=== PATIENT | female | born 1960 | race African-American/Black ===

== ENCOUNTER 2019-08-14 19:03 | Emergency (ER) | payer MEDICAID, OTHER ==
[~2019-08-14] VITALS: Ht 152.4 cm; Wt 54.4 kg
[~2019-08-14 19:03] MED LIST: AMBIEN5 MG ORAL; CIPRO500 MG PO; MULTI-VITAMIN1 EACH PO; NORCO 10/3251 EA ORAL; PERCOCET 5-3251 EACH ORAL; SOMA350 MG PO; [UNRECOGNIZED DRUG - CODE]; vit C; vit E
--- NOTE | 2019-08-14 19:14 | NUR ---
ED Nurse Note: Pt ambulated to ED from home c/o burning in her chest since 1529 today. Pt also reports numbness on L arm. Denies sob or trauma.
[2019-08-14 19:16] VITALS: BP 130/80
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
[2019-08-14] MEDS ORDERED: Ketorolac 30mg Inj IV ONE (19:30)
[2019-08-14] MEDS ORDERED: Aspirin Baby 81mg ORAL ONE (19:30)
[2019-08-14 20:15] LABS: HEMATOCRIT 35.1 % (37.0-47.0); HEMOGLOBIN 11.2 G/DL (12.0-16.0); MEAN CORPUSCULAR VOLUME 93 FL (80-99); PLATELET COUNT 347 K/UL (150-450); RED BLOOD COUNT 3.77 M/UL (4.20-5.40); RED CELL DISTRIBUTION WIDTH 11.5 % (11.6-14.8); WHITE BLOOD COUNT 5.2 K/UL (4.8-10.8)
[2019-08-14 20:26] LABS: ANION GAP 2 mmol/L (5-15); BLOOD UREA NITROGEN 9 mg/dL (7-18); CALCIUM 8.1 MG/DL (8.5-10.1); CARBON DIOXIDE 32 MMOL/L (21-32); CHLORIDE 105 MMOL/L (98-107); CREATININE 0.7 MG/DL (0.55-1.30); POTASSIUM 3.3 MMOL/L (3.5-5.1); SODIUM 139 MMOL/L (136-145)
[2019-08-14 20:39] LABS: ALANINE AMINOTRANSFERASE 11 U/L (12-78); ALBUMIN 3.4 G/DL (3.4-5.0); ALKALINE PHOSPHATASE 76 U/L (46-116); ASPARTATE AMINO TRANSFERASE 13 U/L (15-37); BILIRUBIN,TOTAL 0.1 MG/DL (0.2-1.0); CKMB 0.5 NG/ML (0.0-3.6); CREATINE KINASE 60 U/L (26-308)
--- NOTE | 2019-08-14 21:15 | NUR ---
ED Nurse Note: Pt resting with eyes closed, no signs of distress, non-labored breathing. Will continue to monitor.
[2019-08-14] MEDS ORDERED: IBUPROFEN600 MG ORAL (23:38)
[2019-08-15] VITALS: BP 130/80
--- NOTE | 2019-08-15 | NUR ---
ER DISCHARGE NOTE: Patient is cleared to be discharged per ERMD, pt is aox4, on room air, with stable vital signs. pt was given dc and prescription instructions, pt was able to verbalize understanding, pt id band and iv site removed without complications. pt is able to ambulate with steady gait. pt took all belongings.
--- NOTE | 2019-08-15 12:37 | Diagnostic Imaging Report ---
Indication: Chest Comparison: 09/03/2014 A single view chest radiograph was obtained. Findings: No definite infiltrate or pulmonary vascular congestion identified. The heart is enlarged. The aorta is mildly enlarged consistent with atherosclerotic vascular disease. The bones are osteopenic. Impression: No acute disease
--- NOTE | 2019-08-17 15:31 | Cardiology Report ---
APPROVED REPORT EKG Measurement Heart [id number] Normal sinus rhythm Incomplete right bundle branch block Borderline ECG
== END 2019-08-15 | disposition home or self-care (01) ==
LOC: EMR 19:42
DX: R07.9 Chest pain, unspecified (principal); I10 Essential (primary) hypertension
CPT/HCPCS: 36415; 71045; 80053; 82550; 82553; 84484; 85007; 85025; 93005; 96374; 99284; J1885

== ENCOUNTER 2019-10-07 01:49 | Emergency (ER) | payer OTHER ==
[~2019-10-07] VITALS: Ht 154.9 cm; Wt 51.3 kg
[~2019-10-07 01:49] MED LIST changes: +IBUPROFEN600 MG ORAL
--- NOTE | 2019-10-07 02:18 | NUR ---
ED Nurse Note: Patient walked into ED c/o lower extremity injury, states that she rolled her ankle 2 days prior. At time of arrival patients ankle is swollen. Ice pack applied. VSS.
--- NOTE | 2019-10-07 02:20 | NUR ---
ED Nurse Note: ERMD at bedside.
--- NOTE | 2019-10-07 02:26 | Emergency Room Report ---
History of Present Illness General Chief Complaint: Lower Extremity Injury Source: Patient Present Illness HPI 59-year-old female who slipped and twisted her right foot 4 days ago. She was seen and had negative outpatient x-rays. She has been taking ibuprofen 800 mg with no improvement. Reports swelling to the lateral proximal foot. Patient denies any reinjuries. Allergies: Coded Allergies: No Known Allergies (Unverified , 02/02/14) Patient History Last Menstrual Period: n/a Nursing Documentation-[facility] Past Medical History: No History, Except For Hx Cardiac Problems: Yes Hx Hypertension: Yes Hx Cancer: No Hx Gastrointestinal Problems: No Hx Neurological Problems: No Review of Systems Constitutional: Denies: chills, fever Respiratory: Denies: cough, shortness of breath Cardiovascular: Denies: chest pain, palpitations Gastrointestinal: Denies: diarrhea, vomiting Genitourinary: Denies: hematuria, pain Musculoskeletal: Reports: joint pain; Denies: joint swelling Skin: Denies: rash, lesions Neurological: Denies: headache, dizziness Physical Exam Vital Signs Date Time Temp Pulse Resp B/P (MAP) Pulse Ox O2 Delivery O2 Flow Rate FiO2 10/07/19 02:13 98.8 105 18 140/92 (108) 96 Room Air Sp02 EP Interpretation: reviewed General Appearance: well appearing, no apparent distress, non-toxic Head: normocephalic, atraumatic Eyes: bilateral eye normal inspection ENT: hearing grossly normal, EOM grossly intact, moist mucus membranes Neck: supple Respiratory: lungs clear, normal breath sounds, no respiratory distress, speaking full sentences Cardiovascular #1: regular rate, rhythm, normal capillary refill Cardiovascular #2: 2+ radial (R), 2+ radial (L) Gastrointestinal: soft, non-distended Rectal: deferred Musculoskeletal: moves extm spontaneously, no lower extremity edema, other - Range of motion of foot is full noted to have moderate edema to lateral aspect of ankle and proximal foot. No metatarsal tenderness. Neurologic: grossly normal Psychiatric: mood/affect normal Skin: warm/dry, normal turgor Medical Decision Making Diagnostic Impression: Primary Impression: Foot sprain ER Course 59-year-old female who slipped and twisted her right foot 4 days ago. She was seen and had negative outpatient x-rays. She has been taking ibuprofen 800 mg with no improvement. Reports swelling to the lateral proximal foot. Patient denies any reinjuries. ddx: fracture, sprain, ligament injury will perform xrays and reassess Other X-Ray Diagnostic Results Other X-Ray Diagnostic Results : # of Views/Limited Vs Complete: 3 View Indication: Swelling EP Interpretation: Yes Interpretation: no dislocation, no soft tissue swelling, no fractures Impression: No acute disease Last Vital Signs Date Time Temp Pulse Resp B/P (MAP) Pulse Ox O2 Delivery O2 Flow Rate FiO2 10/07/19 02:13 98.8 105 18 140/92 (108) 96 Room Air Reevaluation Impression X-rays are to be within normal limits. Patient stable for outpatient follow-up and discharged with orthopedics. Placed in Richard bandage for comfort. Disposition: HOME, SELF-CARE Condition: Stable Referrals: NOT CHOSEN IPA/,REFERRING (PCP) Orthopedic Urgent Care Patient Instructions: Ankle Sprain, Foot Sprain Additional Instructions: Follow-up with Ortho clinic in 3 days for reevaluation. Singh Chacko M.D. Oct 07, 2019 02:26
--- NOTE | 2019-10-07 03:26 | NUR ---
ED Nurse Note: Xray at bedside.
--- NOTE | 2019-10-07 04:37 | Diagnostic Imaging Report ---
EXAM: XR Right Foot Complete, 3 or More Views CLINICAL HISTORY: FALL TECHNIQUE: Frontal, lateral and oblique views of the right foot. COMPARISON: No relevant prior studies available. FINDINGS: Bones/joints: Unremarkable. No acute fracture. No dislocation. Soft tissues: Unremarkable. No radiopaque foreign body. IMPRESSION: Normal right foot x-rays.
--- NOTE | 2019-10-07 04:45 | NUR ---
ED Nurse Note: Richard bandage applied.
[2019-10-07 04:50] VITALS: BP 133/78
--- NOTE | 2019-10-07 04:50 | NUR ---
ED Nurse Note: Pt cleared by ERMD for discharge. DC instructions was given and explained to pt and verbalized understanding of teachings. All medical deviecs such as ID band removed. Pt is AAO x4, ambulatory and left with all personal belongings.
== END 2019-10-07 04:50 | disposition home or self-care (01) ==
LOC: EMR 02:25
DX: S93.601A Unspecified sprain of right foot, initial encounter (principal); W19.XXXA Unspecified fall, initial encounter; Y92.9 Unspecified place or not applicable; I10 Essential (primary) hypertension
CPT/HCPCS: 99283